=== PATIENT | female | born 1965 | race Caucasian/White ===

== ENCOUNTER → 2021-12-25 | Outpatient (CLI) | payer BC ==
[2021-12-25 16:22] LABS: CREATININE SERUM 0.9 MG/DL (0.60-1.30)
== END ==
LOC: LAB 15:34
PROVIDERS: ATTEND Internal Medicine
DX: R10.13 Epigastric pain (principal)
CPT/HCPCS: 36415; 82565; 84520

== ENCOUNTER → 2021-12-28 | Outpatient (CLI) | payer BC ==
[~2021-12-28] MED LIST: CATHETER FLUSH 10 ML SYR IV PRN; HOLD METFORMIN - RECEIVED CONTRAST 20 ML VIAL IV SCH; IOHEXOL 350 MG/ML 100 ML (OMNIPAQUE 350) VIAL IV ONE; NS 100 ML (IVPB) BAG IV ONE
--- NOTE | 2021-12-28 10:39 | Diagnostic Imaging Report ---
PROCEDURE: CT abdomen and pelvis with contrast. TECHNIQUE: Multiple contiguous axial images were obtained through the abdomen and pelvis after administration of intravenous contrast. Auto Exposure Controls were utilized during the CT exam to meet ALARA standards for radiation dose reduction. All CT scans use one or more of the following dose optimizing techniques: automated exposure control, MA and/or KvP adjustment based on patient size and exam type or iterative reconstruction. INDICATION: Increasing left lower quadrant palpable abnormality. FINDINGS: There is low-density throughout the liver with sparing of the lateral segment of the left lobe adjacent to falciform ligament. There is no evidence of biliary ductal dilatation. No gallbladder, pancreatic, adrenal gland or splenic abnormality is seen. Kidneys are unremarkable. There is no evidence of urinary tract calculus or obstruction. No free fluid is seen in the abdomen or pelvis. There is no evidence of intra-abdominal mass or adenopathy. Urinary bladder is unremarkable in appearance. Fat containing nodule likely representing lipomas noted within the anterolateral abdominal wall musculature measuring approximately 5.0 x 2.0 x 3.5 cm. There is [id number] lumbar degenerative disc and facet disease. IMPRESSION: Presumed lipoma in the muscles of the anterior abdominal wall of the left lower quadrant which could account for patient's palpable abnormality. Clinical correlation is recommended. Otherwise there is geographic fatty infiltration of the liver. Dictated by: Dictated on workstation # [id number]
== END ==
LOC: RAD 10:15
PROVIDERS: ATTEND Internal Medicine
DX: R10.13 Epigastric pain (principal)
CPT/HCPCS: 74177

== ENCOUNTER 2022-01-24 11:19 | Outpatient (CLI) | payer BC ==
[~2022-01-24] VITALS: Ht 182.9 cm; Wt 106.8 kg
[2022-01-24] MEDS ORDERED: MV-M1TAB20 PO (15:21)
[2022-01-24] MEDS ORDERED: LISI1TAB48 PO (15:21)
[2022-01-24] MEDS ORDERED: POTASSIUM (15:21)
[2022-01-24] MEDS ORDERED: CALCIUM (15:21)
[2022-01-24] MEDS ORDERED: PANT40TA2 PO (15:21)
[2022-01-24] MEDS ORDERED: SUCR1TAB36 PO (15:21)
[2022-01-24] MEDS ORDERED: PRAV20TA3 PO (15:21)
== END 2022-01-25 07:38 ==
LOC: PREOP 11:19
PROVIDERS: ATTEND Surgery
DX: Z01.818 Encounter for other preprocedural examination (principal)

== ENCOUNTER 2022-02-01 05:57 | Day surgery (SDC) | payer BC ==
[2022-02-01] VITALS (10 sets, daily range): BP systolic 90–180; BP diastolic 50–99
[~2022-02-01] VITALS: Ht 182.9 cm; Wt 106.8 kg
[~2022-02-01 05:57] MED LIST changes: +CALCIUM; -CATHETER FLUSH 10 ML SYR IV PRN; -HOLD METFORMIN - RECEIVED CONTRAST 20 ML VIAL IV SCH; -IOHEXOL 350 MG/ML 100 ML (OMNIPAQUE 350) VIAL IV ONE; +LISI1TAB48 PO; +MV-M1TAB20 PO; -NS 100 ML (IVPB) BAG IV ONE; +PANT40TA2 PO; +POTASSIUM; +PRAV20TA3 PO; +SUCR1TAB36 PO
[2022-02-01] MEDS ORDERED: LACTATED RINGERS 1,000 ML IV PRN (06:45)
[2022-02-01] MEDS ORDERED: ceFAZolin 2 GM IV Premixed 50 ML IV ONE (06:45)
[2022-02-01] MEDS ORDERED: LIDOCAINE/EPI 2% 1:100,00 (XYLOCAINE) 20 ML VIAL ONE (07:16)
--- NOTE | 2022-02-01 07:45 | Progress Note-Pre Operative ---
Pre-Operative Progress Note H&P Reviewed The H&P was reviewed, patient examined and no changes noted. Date Seen by Provider: Feb 01, 2022 Time Seen by Provider: 07:35 Date H&P Reviewed: Feb 01, 2022 Time H&P Reviewed: 07:35 Pre-Operative Diagnosis: llq abdominal mass SHANELL ESPINO DO Feb 01, 2022 07:45
[2022-02-01] MEDS ORDERED: MIDAZOLAM 2 MG/2 ML (VERSED) VIAL ONE (07:51)
[2022-02-01] MEDS ORDERED: fentaNYL INJ 100 MCG/2 ML AMP ONE (07:52)
[2022-02-01] MEDS ORDERED: LIDOCAINE PF 2% 5 ML (XYLOCAINE) VIAL ONE (08:05)
[2022-02-01] MEDS ORDERED: proPOfol 200 MG/20 ML (DIPRIVAN) VIAL IV ONE (08:05)
[2022-02-01] MEDS ORDERED: ONDANSETRON 4 MG/2 ML (SDV) Z0FRAN ONE (08:05)
[2022-02-01] MEDS ORDERED: SEVOFLURANE (ULTANE) 15 ML INHAL SOLN ONE (08:53)
--- NOTE | 2022-02-01 08:55 | Progress Note-Post Operative ---
Post-Operative Progess Note Surgeon (s)/Box Puller (s) Surgeon SHANELL ESPINO DO Box Puller: na Pre-Operative Diagnosis llq abdominal mass Post-Operative Diagnosis subumuscular lipoma Procedure & Operative Findings Date of Procedure 02/01/22 Procedure Performed/Findings excision submuscular lipoma 7x 3.5x1 c layered closure Anesthesia Type general Estimated Blood Loss Estimated blood loss (mL): minimal Specimens/Packing Specimens Removed lipoma SHANELL ESPINO DO Feb 01, 2022 08:54
[2022-02-01] MEDS ORDERED: ACHD5005 PO (08:56)
--- NOTE | 2022-02-01 08:57 | Discharge Inst-Simple/Standard ---
Discharge Inst-Standard Discharge Medications New, Converted or Re-Newed RX: Transmitted to Pharmacy Patient Instructions/Follow Up Plan of Care/Instructions/FU: 2 weeks Joselyn Activity as Tolerated: Yes Discharge Diet: Regular Diet Other Inst to Patient Follow up Appt: Make appointment for 2 week. Instructions: No lifting greater than 10 pounds. No strenuous activity. May shower in 24 hours, no tub bath or soaking. Use incentive spirometer at home as directed. No Smoking Skin/Wound Care: You have special glue over your incision that will fall off on it's own. Symptoms to Report: Appetite Changes, Extremity Discoloration, Numbness/Tingling, Swelling Increased, Bleeding Excessive, Eyesight Changes, Pain Increased, Urine Color Change, Constipation(Persistent), Fever over 101 degree F, Pain/Pressure in chest, Urinating Difficulty, Cough Up/Vomit Blood, Heart Beat Irreg/Pounding, Pain/Pressure in jaw, Vaginal Bleeding Increase, Cramps in feet or legs, Lightheadedness, Pain/Pressure in shoulder, Diarrhea(Persistent), Memory Changes Suddenly, Questions/Concerns, Weight gain consecutive days, Dizziness/Fainting, Nausea/Vomiting, Shortness of Breath, Weight gain over 2 pounds If questions or concerns contact your physician Or seek help at emergency department. SHANELL ESPINO DO Feb 01, 2022 08:57
--- NOTE | 2022-02-01 09:06 | Anesthesia-General Post-Op ---
General Patient Condition Mental Status/LOC: Same as Preop Cardiovascular: Satisfactory Nausea/Vomiting: Absent Respiratory: Satisfactory Pain: Controlled Complications: Absent Post Op Complications Complications None Follow Up Care/Instructions Patient Instructions None needed. Anesthesia/Patient Condition Patient Condition Patient is doing well, no complaints, stable vital signs, no apparent adverse anesthesia problems. No complications reported per nursing. EMMY DUONG CRNA Feb 01, 2022 09:06
[2022-02-01] MEDS ORDERED: ONDANSETRON 4 MG/2 ML (SDV) Z0FRAN IVP PRN (09:15)
[2022-02-01] MEDS ORDERED: morphine INJ 10 MG/ML 1ML (SYR OR VIAL) IVP ONE (09:15)
[2022-02-01] MEDS ORDERED: fentaNYL INJ 100 MCG/2 ML AMP IVP ONE (09:15)
[2022-02-01] MEDS ORDERED: KETOROLAC 30 MG/ML VIAL IVP ONE (09:15)
[2022-02-01] MEDS ORDERED: KETOROLAC 30 MG/ML VIAL ONE (09:20)
--- NOTE | 2022-02-01 11:48 | OPERATIVE REPORT ---
DATE OF SERVICE: 02/01/2022 PREOPERATIVE DIAGNOSIS: Left lower quadrant abdominal mass. POSTOPERATIVE DIAGNOSIS: Submuscular lipoma, left lower quadrant. PROCEDURE PERFORMED: Excision of submuscular lipoma 7 x 3.5 x 1 cm with layered closure. ANESTHESIA: General. SURGEON: Shanell Alves DO INDICATIONS: The patient is a 56-year-old female with left lower quadrant abdominal mass. She understands risks and benefits of procedure and wishes to proceed. Consent was signed in the chart. DESCRIPTION OF PROCEDURE: The patient was taken to the operating suite. She was prepped and draped in sterile fashion. Timeout was performed. Local anesthetic was infiltrated in left lower quadrant. An incision was made. Cautery was used to dissect down through the subcutaneous tissues. The anterior fascia was then opened visualizing the muscle. The muscle was then spread seeing a lipoma present. Blunt and cautery dissection was used to remove that area. It was 7 x 3.5 x 1 cm. No other pathology was able to be visualized or palpated. The muscles were then reapproximated using 0 Vicryl loosely. The anterior fascia was then reapproximated using 0 Vicryl in interrupted [id number] fashion. The wound was then irrigated with copious amounts of irrigation. Subcutaneous tissues were then reapproximated using 3-0 Vicryl. Skin was then closed using 4-0 Monocryl in a subcuticular fashion. The area was washed and dried and Skin Affix was placed over the incision. The patient tolerated the procedure well without any complications. She was taken to recovery room in stable condition. Job ID: [id number] DocumentID: [id number] Dictated Date: 02/01/2022 08:59:51 Awning Craftsman Date: 02/01/2022 11:47:06 Dictated By: SHANELL ALVES DO
== END 2022-02-01 10:45 ==
LOC: SDC 05:57
PROVIDERS: ATTEND Surgery
DX: D17.1 Benign lipomatous neoplasm of skin and subcutaneous tissue of trunk (principal); E66.9 Obesity, unspecified; Z68.32 Body mass index [BMI] 32.0-32.9, adult; Z87.891 Personal history of nicotine dependence
CPT/HCPCS: 87081